=== PATIENT | female | born 1980 | race Two or more races ===

== ENCOUNTER 2019-05-26 00:28 | Emergency (ER) | payer OTHER ==
[~2019-05-26] VITALS: Ht 165.1 cm; Wt 89.8 kg
--- NOTE | 2019-05-26 00:40 | NUR ---
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 FEELING BETTER NOW. PT DISCRIBED THE PAIN A SHARP PAIN RADIATING TO THE L ARM AND NECK. ALSO REPORTED FEELING NAUSEOUS AT HOME WHICH IS RESOLVED NOW. DENIED SOB AT THIS TIME. PT WAS PLACED ON A MONITOR ,. VSS. WILL CONT TO MONITOR ,
--- NOTE | 2019-05-26 00:55 | NUR ---
AT THE BED SIDE
[2019-05-26 00:56] LABS: BASOPHILS % (AUTO) 0.4 % (0.0-2.0); EOSINOPHILS % (AUTO) 1.5 % (0.0-6.0); HEMATOCRIT 42 % (33-45); HEMOGLOBIN 13.8 g/dL (11.5-14.8); LYMPHOCYTES # (AUTO) 2.9 /CMM (0.8-4.8); MEAN CORPUSCULAR HGB CONC 33 g/dl (31.0-36.0); MEAN CORPUSCULAR VOLUME 87 fL (82-100); MONOCYTES # (AUTO) 0.8 /CMM (0.1-1.30); MONOCYTES % (AUTO) 9.4 % (2.0-12.0); NEUTROPHILS # (AUTO) 4.4 /CMM (1.8-8.9); NEUTROPHILS % (AUTO) 53.7 % (43.0-81.0); PLATELET COUNT (AUTO) 220 /CMM (150-450); RED BLOOD CELL COUNT(AUTO) 4.88 MIL/uL (4.0-5.2); WHITE BLOOD COUNT (AUTO) 8.2 K/uL (4.3-11.0)
[2019-05-26 01:10] LABS: CALCIUM, SERUM 8.5 mg/dL (8.5-10.1); CARBON DIOXIDE 27 mmol/L (21-32); CHLORIDE 105 mmol/L (98-107); CREATININE 0.8 mg/dL (0.6-1.3); GLUCOSE 109 mg/dL (74-106); POTASSIUM 3.7 mmol/L (3.5-5.1); SODIUM SERUM 141 mmol/L (136-145); UREA NITROGEN, BLOOD 15 mg/dL (7-18)
[2019-05-26 01:37] VITALS: BP 125/71
--- NOTE | 2019-05-26 01:37 | NUR ---
IV removed. Catheter intact and site benign. Pressure and 4x4 applied to site. No bleeding noted.Patient discharged to home in stable condition. Rx and Written and verbal after care instructions given. Patient verbalizes understanding of instruction.
== END 2019-05-26 01:37 | disposition home or self-care (01) ==
LOC: ER 00:29
DX: R07.89 Other chest pain (principal); I10 Essential (primary) hypertension; E11.9 Type 2 diabetes mellitus without complications; Z98.890 Other specified postprocedural states; Z88.0 Allergy status to penicillin
CPT/HCPCS: 36415; 71045-TC; 80048-TC; 84484-TC; 85025-TC

== ENCOUNTER 2019-10-06 14:19 | Emergency (ER) | payer OTHER ==
[~2019-10-06] VITALS: Ht 165.1 cm; Wt 95.7 kg
[2019-10-06] MEDS ORDERED: ASPIRIN 325 MG TABLET PO ONE (14:30)
[2019-10-06] MEDS ORDERED: NITROGLYCERIN 0.4 MG/TAB BOTTLE SL ONE (14:30)
--- NOTE | 2019-10-06 14:30 | NUR ---
[id number] HOME C/O MIDSTERNAL CHEST PAIN R/T L SIDE SUDDEN ONSET 20MINS [employer] , 5/10 PS, TO ER BED 9, HOOKED TO NNPS AND POX, NOTED NORMAL SINUS RHYTHM, CHANGED TO HOSP GOWN, WARM BLANKET PROVIDED, PATIENT AAO x 4, BREATHING EVEN AND UNLABORED. AWAITING MD BARAKAT
--- NOTE | 2019-10-06 14:31 | NUR ---
DR BRADY AT BEDSIDE FOR EVAL
[2019-10-06] MEDS ORDERED: ASPIRIN 325 MG TABLET ONE (14:41)
[2019-10-06] MEDS ORDERED: NITROGLYCERIN 0.4 MG/TAB BOTTLE ONE (14:41)
[2019-10-06 14:45] LABS: BASOPHILS # (AUTO) 0.1 /CMM (0.0-0.2); BASOPHILS % (AUTO) 0.5 % (0.0-2.0); EOSINOPHILS % (AUTO) 0.7 % (0.0-6.0); HEMATOCRIT 41 % (33-45); HEMOGLOBIN 13.4 g/dL (11.5-14.8); LYMPHOCYTES # (AUTO) 3.7 /CMM (0.8-4.8); MEAN CORPUSCULAR HGB CONC 32 g/dl (31.0-36.0); MEAN CORPUSCULAR VOLUME 87 fL (82-100); MONOCYTES # (AUTO) 0.9 /CMM (0.1-1.30); MONOCYTES % (AUTO) 6.8 % (2.0-12.0); PLATELET COUNT (AUTO) 225 /CMM (150-450); RED BLOOD CELL COUNT(AUTO) 4.74 MIL/uL (4.0-5.2); WHITE BLOOD COUNT (AUTO) 12.7 K/uL (4.3-11.0)
[2019-10-06 14:51] LABS: CALCIUM, SERUM 8.3 mg/dL (8.5-10.1); CARBON DIOXIDE 26 mmol/L (21-32); CHLORIDE 105 mmol/L (98-107); CREATININE 0.8 mg/dL (0.6-1.3); GLUCOSE 100 mg/dL (74-106); POTASSIUM 3.6 mmol/L (3.5-5.1); SODIUM SERUM 140 mmol/L (136-145); UREA NITROGEN, BLOOD 12 mg/dL (7-18)
--- NOTE | 2019-10-06 17:27 | NUR ---
IV removed. Catheter intact and site benign. Pressure and 4x4 applied to site. No bleeding noted.Patient discharged to home in stable condition. Written and verbal after care instructions given. Patient verbalizes understanding of instruction.
[2019-10-06 17:28] VITALS: BP 124/67
== END 2019-10-06 17:29 | disposition home or self-care (01) ==
LOC: ER 14:25
DX: R07.89 Other chest pain (principal); E78.5 Hyperlipidemia, unspecified; I10 Essential (primary) hypertension; E11.9 Type 2 diabetes mellitus without complications; Z98.890 Other specified postprocedural states
CPT/HCPCS: 36415; 71045-TC; 80048-TC; 84484-TC; 85025-TC